=== PATIENT | male | born 1975 | race African-American/Black ===

== ENCOUNTER 2018-09-09 13:05 | Inpatient (IN) | payer OTHER ==
[2018-09-09 14:28] VITALS: BMI 18.8
--- NOTE | 2018-09-09 15:28 | HP ---
CIWA Score Nausea/Vomitin-Mild Nausea/No Vomiting Muscle Tremors: 3 Anxiety: 3 Agitation: 3 Paroxysmal Sweats: 3 Orientation: 1-Uncertain about Date Tacttile Disturbances: 1-Very Mild Itch/Numbness Auditory Disturbances: 0-None Visual Disturbances: 0-None Headache: 0-None Present CIWA-Ar Total Score: 15 - Admission Criteria [facility]ASAS Guidelines: Admission for Medically Managed Detox: Requires at least one of the followin. CIWA greater than 12 2. Seizures within the past 24 hours 3. Delirium tremens within the past 24 hours 4. Hallucinations within the past 24 hours 5. Acute intervention needed for co occurring medical disorder 6. Acute intervention needed for co occurring psychiatric disorder 7. Severe withdrawal that cannot be handled at a lower level of care (continued vomiting, continued diarrhea, abnormal vital signs) requiring intravenous medication and/or fluids 8. Patient presents the following: CIWA greater than 12 Admission Criteria Met: Admission criteria met Admission ROS S - [facility] Chief Complaint: "I REALLY NEED DETOX, AND I AM JUST TAKING THE NEXT STEP" Allergies/Adverse Reactions: Allergies Allergy/AdvReac Type Severity Reaction Status Date / Time No Known Allergies Allergy Verified 09/09/18 15:30 History of Present Illness: 43 Y/O MALE PRESENTS HERE FOR THE FIRST TIME SEEKING DETOX AT THIS FACILITY. STATES HE HAS BEEN AT OTHER DETOX CENTERS. STATES HE IS SELF REFERRED BUT WAS SEEN AT [facility] OVER THE WEEKEND. DENIES SEIZURES OR BLACKOUTS DUE TO WITHDRAWALS BUT GETS "LEG CRAMPS". DENIES SUICIDAL NOR HOMICIDAL IDEATIONS. HX: PT IS A POOR HISTORIAN A RESULT OF BEING DRUNK , STATES HE HAS A HX OF DM , HIGH CHOL - AND THEN STATES HE DOESN'T. Exam Limitations: Intoxication - Ebola screening Have you traveled outside of the country in the last 21 days: No Have you had contact with anyone from an Ebola affected area: No Have you been sick,other than usual withdrawal symptoms: No Do you have a fever: No - Review of Systems Constitutional: Loss of Appetite, Night Sweats, Unintentional Wgt. Loss EENT: reports: Blurred Vision, Other (DRY MOUTH) Respiratory: reports: No Symptoms reported Cardiac: reports: Other (TACHYCARDIA) GI: reports: Diarrhea, Poor Appetite, Vomiting : reports: Frequency Musculoskeletal: reports: Back Pain, Joint Pain Integumentary: reports: No Symptoms Reported Neuro: reports: No Symptoms reported Endocrine: reports: No Symptoms Reported Hematology: reports: No Symptoms Reported Psychiatric: reports: Orientated x3, Anxious Other Systems: Reviewed and Negative Patient History - Patient Medical History Hx Anemia: No Hx Asthma: No Hx Chronic Obstructive Pulmonary Disease (COPD): No Hx Cancer: No Hx Cardiac Disorders: No Hx Congestive Heart Failure: No Hx Hypertension: No Hx Hypercholesterolemia: Yes (ON MEDS) Hx Pacemaker: No HX Cerebrovascular Accident: No Hx Seizures: No Hx Dementia: No Hx Diabetes: Yes (ON MEDS) Hx Gastrointestinal Disorders: No Hx Liver Disease: Yes (STATES HE MIGHT HAVE HEP C) Hx Genitourinary Disorders: No Hx Sexually Transmitted Disorders: No Hx Renal Disease (ESRD): No Hx Thyroid Disease: No Hx Human Immunodeficiency Virus (HIV): No (DECLINES TREATMENT) Hx Hepatitis C: Yes (?) Hx Depression: No Hx Suicide Attempt: No Hx Bipolar Disorder: No Hx Schizophrenia: No - Patient Surgical History Past Surgical History: No Anesthesia Reaction: No - PPD History Previous Implant?: No Documented Results: Negative w/proof Implanted On Prior [facility] Admission?: No PPD to be Administered?: Yes - Reproductive History Patient is a Female of Child Bearing Age (11 -55 yrs old): No Patient : No - Smoking Cessation Smoking history: Current every day smoker Have you smoked in the past 12 months: Yes Aproximately how many cigarettes per day: 4 Initiated information on smoking cessation: Yes 'Breaking Loose' booklet given: 09/09/18 - Substance & Tx. History Hx Alcohol Use: Yes Hx Substance Use: No Substance Use Type: Alcohol Hx Substance Use Treatment: Yes - Substances Abused Alcohol Route: Oral Frequency: Daily Amount used: 4 (24Oz) cans of beer, 1/2 pint of vodka Age of first use: 22 Date of Last Use: 09/09/18 Family Disease History - Family Disease History Family Disease History: Diabetes: Mother, Heart Disease: Mother, Other: Father ( ) Admission Physical Exam [facility] - Vital Signs Vital Signs: Vital Signs - 24 hr 09/09/18 14:27 Temperature 99.0 F Pulse Rate 110 H Respiratory 18 Rate Blood Pressure 112/75 - Physical General Appearance: Yes: Moderate Distress, Intoxicated, Anxious HEENTM: Yes: Within Normal Limits Respiratory: Yes: Lungs Clear, No Respiratory Distress, No Accessory Muscle Use Neck: Yes: No masses,lesions,Nodules, Trachea in good position Breast: Yes: Breast Exam Deferred Cardiology: Yes: Tachycardia Abdominal: Yes: Normal Bowel Sounds, Soft, Tenderness (SLIGHTLY TENDER TO ALL QUADRANTS WHEN PALPATED) Genitourinary: Yes: Within Normal Limits Back: Yes: Normal Inspection Musculoskeletal: Yes: full range of Motion, Gait Steady Extremities: Yes: Normal Capillary Refill, Normal Range of Motion Neurological: Yes: Within Normal Limits, Fully Oriented, Alert Integumentary: Yes: Dry, Warm Lymphatic: Yes: Within Normal Limits - Diagnostic (1) Alcohol dependence, uncomplicated Current Visit: Yes Status: Acute (2) Nicotine dependence Current Visit: Yes Status: Acute Cleared for Admission [facility] - Detox or Rehab [facility] Level of Care: Medically Managed Detox Regimen/Protocol: Librium [facility] Breath Alcohol Content Breath Alcohol Content: 0.149 Urine Drug Screen - Results Drug Screen Negative: No Urine Drug Screen Results: BZO-Benzodiazepines Inpatient Rehab Admission - Rehab Decision to Admit Inpatient rehab admission?: No
[2018-09-09] MEDS ORDERED: LOPERAMIDE HCL 2 MG CAPSULE PO PRN (16:10)
[2018-09-09] MEDS ORDERED: guaiFENesin/D-METHORPHAN HB 10 ML UNIT-DOSE CUPS PO PRN (16:10)
[2018-09-09] MEDS ORDERED: IBUPROFEN 400 MG TABLET (FP) PO PRN (16:10)
[2018-09-09] MEDS ORDERED: chlordiazePOXIDE HCL 25 MG CAPSULE PO PRN (16:10)
[2018-09-09] MEDS ORDERED: chlordiazePOXIDE HCL 25 MG CAPSULE PO ONE (16:10)
[2018-09-09] MEDS ORDERED: MAG HYDROX/AL HYDROX/SIMETH 30 ML UNIT-DOSE CUP PO PRN (16:10)
[2018-09-09] MEDS ORDERED: ACETAMINOPHEN 325 MG TABLET (FP) PO PRN (16:10)
[2018-09-09] MEDS ORDERED: MAGNESIUM HYDROX 2400MG/30ML ORAL SUSPENSION 30 ML CUP PO PRN (16:10)
[2018-09-09] MEDS ORDERED: MENTHOL/PHENOL 1 EACH UD MM PRN (16:10)
[2018-09-09] MEDS ORDERED: P-EPHED 60MG/TRIPROLIDI 2.5MG TABLET PO PRN (16:10)
[2018-09-09] MEDS ORDERED: MAGNESIUM CITRATE 300 ML BOTTLE PO PRN (16:10)
[2018-09-09] MEDS: chlordiazePOXIDE HCL 25 MG CAPSULE PO SCH ×2 (18:59→22:39)
[2018-09-09] MEDS: NICOTINE 14 MG/24 HOURS TOPICAL PATCH TD SCH (19:11)
--- NOTE | 2018-09-09 19:30 | PN ---
S Progress Note Note: Vital Signs Temperature 97.9 F 09/09/18 18:55 Pulse Rate 92 H 09/09/18 18:55 Respiratory Rate 18 09/09/18 18:55 Blood Pressure 121/83 09/09/18 18:55 O2 Sat by Pulse Oximetry (%) Laboratory Last Values POC Glucometer 413 UNITS (80-120) 09/09/18 19:05 Increase PO fluids sliding scale continue to monitor
[2018-09-09] MEDS ORDERED: INSULIN (NOVOLOG) ASPART 100 UNITS/ML 10ML VIAL ONE ×2 (19:41→22:43)
[2018-09-09] MEDS: INSULIN SLIDING SCALE (NOVOLOG) 1 VIAL SQ SCH (19:43)
[2018-09-09] MEDS: ATORVASTATIN CA 20 MG TABLET (FP) PO SCH (22:39)
[2018-09-09] MEDS: THIAMINE HCL 100 MG TABLET (FP) PO SCH (22:39)
[2018-09-09] MEDS: MELATONIN 5 MG TABLETS PO PRN (22:40)
[2018-09-10] MEDS: chlordiazePOXIDE HCL 25 MG CAPSULE PO SCH ×4 (05:27→22:25)
[2018-09-10] MEDS: GLIMEPIRIDE 2 MG TABLET (FP) PO SCH ×2 (06:27→17:25)
[2018-09-10] MEDS: INSULIN SLIDING SCALE (NOVOLOG) 1 VIAL SQ SCH ×3 (07:48→17:01)
--- NOTE | 2018-09-10 09:46 | PN ---
S CIWA - CIWA Score Nausea/Vomitin-No Nausea/No Vomiting Muscle Tremors: 4-Moderate,w/Arms Extend Anxiety: 3 Agitation: 3 Paroxysmal Sweats: 3 Orientation: 0-Oriented Tacttile Disturbances: 0-None Auditory Disturbances: 0-None Visual Disturbances: 0-None Headache: 0-None Present CIWA-Ar Total Score: 13 [facility] Progress Note (SOAP) Subjective: sweats interrupted sleep agitation chills Objective: 09/10/18 09:45 Vital Signs Temperature 99.1 F 09/10/18 07:24 Pulse Rate 86 09/10/18 08:00 Respiratory Rate 18 09/10/18 07:24 Blood Pressure 105/66 09/10/18 07:24 O2 Sat by Pulse Oximetry (%) Laboratory Tests 09/09/18 09/09/18 09/09/18 16:59 19:05 22:37 POC Glucometer 461 413 365 09/10/18 05:26 POC Glucometer 128 rest of labs pending aaox3 ambulating no acute distress Assessment: 09/10/18 09:46 withdrawal sx Plan: continue detox increase fluids pending labs
[2018-09-10] MEDS: OXYBUTYNIN CHLORIDE 5 MG TABLET PO SCH (10:52)
[2018-09-10] MEDS: NICOTINE 14 MG/24 HOURS TOPICAL PATCH TD SCH (10:52)
[2018-09-10] MEDS: PRENATAL VITAMINS W/ FOLIC ACID TABLET (FP) PO SCH (10:52)
[2018-09-10] MEDS ORDERED: INSULIN (NOVOLOG) ASPART 100 UNITS/ML 10ML VIAL ONE ×2 (11:35→16:58)
[2018-09-10 12:38] LABS: HEMATOCRIT 38.3 % (35.4-49); HEMOGLOBIN 13.3 GM/dL (11.7-16.9); MCH 34.7 pg (25.7-33.7); MCHC 34.7 g/dl (32.0-35.9); MEAN CELL VOLUME 99.9 fl (80-96); MEAN PLT VOLUME 9.8 fl (7.5-11.1); PLATELET COUNT 56 K/MM3 (134-434); RBC 3.83 M/mm3 (4.00-5.60); RDW 14.3 % (11.9-15.9); WHITE BLOOD COUNT 4.2 K/mm3 (4.0-10.0)
[2018-09-10 13:02] LABS: ALBUMIN 2.3 g/dl (3.4-5.0); ALK PHOS 395 U/L (45-117); ANION GAP 9 MMOL/L (8-16); BILIRUBIN,TOTAL 3.5 mg/dL (0.2-1); BLOOD UREA NITROGEN 7 mg/dL (7-18); CALCIUM 7.9 mg/dL (8.5-10.1); CHLORIDE 97 mmol/L (98-107); CO2 32 mmol/L (21-32); CREATININE 0.8 mg/dL (0.55-1.3); GLUCOSE,RANDOM 113 mg/dL (74-106); POTASSIUM 3.7 mmol/L (3.5-5.1); SGOT/AST 297 U/L (15-37); SGPT/ALT 147 U/L (13-61); SODIUM 137 mmol/L (136-145); TOT PROT 5.9 g/dl (6.4-8.2)
[2018-09-10] MEDS: ATORVASTATIN CA 20 MG TABLET (FP) PO SCH (22:25)
[2018-09-10] MEDS: THIAMINE HCL 100 MG TABLET (FP) PO SCH (22:25)
[2018-09-10] MEDS: MELATONIN 5 MG TABLETS PO PRN (22:25)
[2018-09-11] MEDS: chlordiazePOXIDE HCL 25 MG CAPSULE PO SCH ×2 (05:28→10:19)
[2018-09-11] MEDS ORDERED: INSULIN (NOVOLOG) ASPART 100 UNITS/ML 10ML VIAL ONE ×2 (07:24→11:28)
[2018-09-11] MEDS: INSULIN SLIDING SCALE (NOVOLOG) 1 VIAL SQ SCH ×3 (07:26→16:58)
[2018-09-11] MEDS: GLIMEPIRIDE 2 MG TABLET (FP) PO SCH ×2 (07:26→16:58)
[2018-09-11] MEDS: OXYBUTYNIN CHLORIDE 5 MG TABLET PO SCH (10:19)
[2018-09-11] MEDS: PRENATAL VITAMINS W/ FOLIC ACID TABLET (FP) PO SCH (10:19)
[2018-09-11] MEDS: NICOTINE 14 MG/24 HOURS TOPICAL PATCH TD SCH (10:19)
--- NOTE | 2018-09-11 10:47 | PN ---
[facility] CIWA - CIWA Score Nausea/Vomitin-No Nausea/No Vomiting Muscle Tremors: 3 Anxiety: 3 Agitation: 3 Paroxysmal Sweats: 2 Orientation: 0-Oriented Tacttile Disturbances: 0-None Auditory Disturbances: 0-None Visual Disturbances: 0-None Headache: 0-None Present CIWA-Ar Total Score: 11 S Progress Note (SOAP) Subjective: sweats stomach ache body aches i want to use my shoes interrupted sleep Objective: 09/11/18 10:45 Vital Signs Temperature 98.1 F 09/11/18 09:28 Pulse Rate 90 09/11/18 09:28 Respiratory Rate 18 09/11/18 09:28 Blood Pressure 108/68 09/11/18 09:28 O2 Sat by Pulse Oximetry (%) Laboratory Tests 09/09/18 09/09/18 09/09/18 16:59 19:05 22:37 WBC RBC Hgb Hct MCV MCH MCHC RDW Plt Count MPV Platelet Comment Sodium Potassium Chloride Carbon Dioxide Anion Gap BUN Creatinine Creat Clearance w eGFR POC Glucometer 461 413 365 Random Glucose Calcium Total Bilirubin AST ALT Alkaline Phosphatase Total Protein Albumin RPR Titer 09/10/18 09/10/18 09/10/18 05:26 07:00 07:00 WBC 4.2 RBC 3.83 L Hgb 13.3 Hct 38.3 MCV 99.9 H MCH 34.7 H MCHC 34.7 RDW 14.3 Plt Count 56 L MPV 9.8 Platelet Comment No clumping noted Sodium 137 Potassium 3.7 Chloride 97 L Carbon Dioxide 32 Anion Gap 9 BUN 7 Creatinine 0.8 Creat Clearance w eGFR > 60 POC Glucometer 128 Random Glucose 113 H Calcium 7.9 L Total Bilirubin 3.5 H AST 297 H ALT 147 H Alkaline Phosphatase 395 H Total Protein 5.9 L Albumin 2.3 L RPR Titer 09/10/18 09/10/18 09/10/18 07:00 11:16 16:39 WBC RBC Hgb Hct MCV MCH MCHC RDW Plt Count MPV Platelet Comment Sodium Potassium Chloride Carbon Dioxide Anion Gap BUN Creatinine Creat Clearance w eGFR POC Glucometer 423 382 Random Glucose Calcium Total Bilirubin AST ALT Alkaline Phosphatase Total Protein Albumin RPR Titer Nonreactive 09/10/18 09/11/18 22:24 05:26 WBC RBC Hgb Hct MCV MCH MCHC RDW Plt Count MPV Platelet Comment Sodium Potassium Chloride Carbon Dioxide Anion Gap BUN Creatinine Creat Clearance w eGFR POC Glucometer 164 252 Random Glucose Calcium Total Bilirubin AST ALT Alkaline Phosphatase Total Protein Albumin RPR Titer labs noted cbc,cmp ordered Tylenol d/c Assessment: 09/11/18 10:46 withdrawal sx Plan: continue detox increase fluids labs repeated. pt may wear his shoes
[2018-09-11] MEDS: chlordiazePOXIDE 5 MG CAPSULE PO SCH ×2 (16:58→22:14)
[2018-09-11] MEDS: ATORVASTATIN CA 20 MG TABLET (FP) PO SCH (22:14)
[2018-09-11] MEDS: THIAMINE HCL 100 MG TABLET (FP) PO SCH (22:14)
[2018-09-11] MEDS: MELATONIN 5 MG TABLETS PO PRN (22:14)
[2018-09-12] MEDS: chlordiazePOXIDE 5 MG CAPSULE PO SCH ×2 (05:57→10:51)
[2018-09-12] MEDS: GLIMEPIRIDE 2 MG TABLET (FP) PO SCH ×2 (06:15→17:25)
[2018-09-12] MEDS ORDERED: INSULIN (NOVOLOG) ASPART 100 UNITS/ML 10ML VIAL ONE ×3 (06:18→23:37)
[2018-09-12] MEDS: INSULIN SLIDING SCALE (NOVOLOG) 1 VIAL SQ SCH ×3 (07:18→17:27)
[2018-09-12 10:39] LABS: SGOT/AST 164 U/L (15-37); SGPT/ALT 122 U/L (13-61)
[2018-09-12] MEDS: NICOTINE 14 MG/24 HOURS TOPICAL PATCH TD SCH (10:51)
[2018-09-12] MEDS: PRENATAL VITAMINS W/ FOLIC ACID TABLET (FP) PO SCH (10:51)
[2018-09-12] MEDS: OXYBUTYNIN CHLORIDE 5 MG TABLET PO SCH (10:51)
--- NOTE | 2018-09-12 11:02 | PN ---
[facility] Progress Note (SOAP) Subjective: sweats interrupted sleep Objective: 09/12/18 11:02 Vital Signs Temperature 98.4 F 09/12/18 09:41 Pulse Rate 82 09/12/18 10:30 Respiratory Rate 18 09/12/18 10:30 Blood Pressure 104/79 09/12/18 10:30 O2 Sat by Pulse Oximetry (%) Laboratory Tests 09/09/18 09/09/18 09/09/18 16:59 19:05 22:37 WBC RBC Hgb Hct MCV MCH MCHC RDW Plt Count MPV Platelet Comment Sodium Potassium Chloride Carbon Dioxide Anion Gap BUN Creatinine Creat Clearance w eGFR POC Glucometer 461 413 365 Random Glucose Calcium Total Bilirubin AST ALT Alkaline Phosphatase Total Protein Albumin RPR Titer 09/10/18 09/10/18 09/10/18 05:26 07:00 07:00 WBC 4.2 RBC 3.83 L Hgb 13.3 Hct 38.3 MCV 99.9 H MCH 34.7 H MCHC 34.7 RDW 14.3 Plt Count 56 L MPV 9.8 Platelet Comment No clumping noted Sodium 137 Potassium 3.7 Chloride 97 L Carbon Dioxide 32 Anion Gap 9 BUN 7 Creatinine 0.8 Creat Clearance w eGFR > 60 POC Glucometer 128 Random Glucose 113 H Calcium 7.9 L Total Bilirubin 3.5 H AST 297 H ALT 147 H Alkaline Phosphatase 395 H Total Protein 5.9 L Albumin 2.3 L RPR Titer 09/10/18 09/10/18 09/10/18 07:00 11:16 16:39 WBC RBC Hgb Hct MCV MCH MCHC RDW Plt Count MPV Platelet Comment Sodium Potassium Chloride Carbon Dioxide Anion Gap BUN Creatinine Creat Clearance w eGFR POC Glucometer 423 382 Random Glucose Calcium Total Bilirubin AST ALT Alkaline Phosphatase Total Protein Albumin RPR Titer Nonreactive 09/10/18 09/11/18 09/11/18 22:24 05:26 11:19 WBC RBC Hgb Hct MCV MCH MCHC RDW Plt Count MPV Platelet Comment Sodium Potassium Chloride Carbon Dioxide Anion Gap BUN Creatinine Creat Clearance w eGFR POC Glucometer 164 252 484 Random Glucose Calcium Total Bilirubin AST ALT Alkaline Phosphatase Total Protein Albumin RPR Titer 09/11/18 09/12/18 09/12/18 16:32 05:54 07:00 WBC RBC Hgb Hct MCV MCH MCHC RDW Plt Count MPV Platelet Comment Sodium Potassium Chloride Carbon Dioxide Anion Gap BUN Creatinine Creat Clearance w eGFR POC Glucometer 177 304 Random Glucose Calcium Total Bilirubin AST 164 H ALT 122 H Alkaline Phosphatase Total Protein Albumin RPR Titer liver enzymes improving aaox3 ambulating no acute distress Assessment: 09/12/18 11:05 withdrawal sx Plan: continue detox increase fluids d/c in am
[2018-09-12] MEDS: chlordiazePOXIDE HCL 10 MG CAPSULE PO SCH ×2 (17:24→22:32)
[2018-09-12] MEDS: ATORVASTATIN CA 20 MG TABLET (FP) PO SCH (22:32)
[2018-09-12] MEDS: THIAMINE HCL 100 MG TABLET (FP) PO SCH (22:32)
[2018-09-12] MEDS: MELATONIN 5 MG TABLETS PO PRN (22:33)
[2018-09-13] MEDS: chlordiazePOXIDE HCL 10 MG CAPSULE PO SCH (05:43)
[2018-09-13 06:46] VITALS: TEMP 98.4
[2018-09-13] MEDS: GLIMEPIRIDE 2 MG TABLET (FP) PO SCH (07:09)
[2018-09-13] MEDS ORDERED: INSULIN (NOVOLOG) ASPART 100 UNITS/ML 10ML VIAL ONE (07:38)
[2018-09-13] MEDS: INSULIN SLIDING SCALE (NOVOLOG) 1 VIAL SQ SCH (07:54)
--- NOTE | 2018-09-13 09:09 | DS ---
[facility] Detox Discharge Summary Admission Date: 09/09/18 Discharge Date: 09/13/18 - History Present History: Alcohol Dependence - Physical Exam Results Vital Signs: Vital Signs Temperature 98.4 F 09/13/18 06:00 Pulse Rate 68 09/13/18 06:00 Respiratory Rate 18 09/13/18 06:00 Blood Pressure 101/56 L 09/13/18 06:00 O2 Sat by Pulse Oximetry (%) - Treatment Hospital Course: Detox Protocol Followed, Detoxed Safely, Responded well, Discharged Condition Good, Rehab Referral Accepted - Medication Discharge Medications: Ambulatory Orders Alprazolam 0.5 mg PO BID 09/09/18 Atorvastatin Ca [Lipitor] 20 mg PO HS 09/09/18 Cholecalciferol (Vitamin D3) [Vitamin D3] 5,000 unit PO WEEKLY 09/09/18 Glimepiride [Amaryl -] 2 mg PO BID 09/09/18 Naltrexone HCl [Revia -] 50 mg PO DAILY 09/09/18 Oxybutynin Chloride [Ditropan -] 5 mg PO DAILY 09/09/18 - Diagnosis (1) Alcohol dependence, uncomplicated Current Visit: Yes Status: Chronic (2) Nicotine dependence Current Visit: Yes Status: Chronic Qualifiers: Nicotine product type: cigarettes Substance use status: uncomplicated Qualified Code(s): F17.210 - Nicotine dependence, cigarettes, uncomplicated - AMA Did Patient Leave Against Medical Advice: No ( PAC outpatient)
[2018-09-13 09:52] VITALS: BP 105/56; PULSE 85
== END 2018-09-13 09:20 | disposition home or self-care (01) | DRG 775 ==
LOC: YASAS 13:05 → Y6N 17:14
PROVIDERS: ADMIT Surgery; ATTEND Surgery
PROC: HZ2ZZZZ Detoxification Services for Substance Abuse Treatment (ICD-10-PCS; principal; 2018-09-09)
DX: F10.230 Alcohol dependence with withdrawal, uncomplicated (principal); F17.210 Nicotine dependence, cigarettes, uncomplicated; E78.00 Pure hypercholesterolemia, unspecified; E11.9 Type 2 diabetes mellitus without complications; Z79.4 Long term (current) use of insulin
CPT/HCPCS: 36415; 80053; 82962; 84450; 84460; 85027; 86593